=== PATIENT | male | born 1990 | race Caucasian/White ===

== ENCOUNTER 2018-10-23 02:56 | Inpatient (IN) | payer MEDICAID ==
[~2018-10-23] VITALS: Ht 180.3 cm; Wt 112.5 kg
--- NOTE | ~2018-10-23 | EKG ---
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
[2018-10-23 02:57] VITALS: BP 140/98
[2018-10-23 03:18] LABS: ABSOLUTE BASOPHILS 0.1 thou/uL (0.0-0.2); BASOPHILS 0.5 %; EOSINOPHILS 0.3 %; HEMATOCRIT 47.8 % (42.0-52.0); HEMOGLOBIN 15.9 gm/dL (14.0-18.0); LYMPHOCYTES 12.4 %; MCH 29.5 pg (26.0-34.0); MCHC 33.2 g/dL (28.0-37.0); MCV 88.9 fL (80.0-100.0); MONOCYTES 6.3 %; MPV 8.3 fl. (7.2-11.1); NUCLEATED RBCS 0 /100WBC; PLATELET COUNT* 302 thou/uL (150-400); POLYS 80.5 %; RBC 5.38 mil/uL (4.50-6.00); RDW-CV 12.9 % (10.5-14.5); WBC 16.2 thou/uL (4.0-11.0)
[2018-10-23] MEDS ORDERED: FLONASE 0.05%50 MCG NASAL (03:20)
[2018-10-23] MEDS ORDERED: FOLIC ACID1 MG PO (03:21)
[2018-10-23] MEDS ORDERED: IBUPROFEN 600600 M1 PO (03:22)
[2018-10-23] MEDS ORDERED: MUCINEX600 MG PO (03:22)
[2018-10-23] MEDS ORDERED: ZOFRAN ODT4 MG PO (03:23)
[2018-10-23] MEDS ORDERED: NIACIN ER500 MG PO (03:23)
[2018-10-23] MEDS ORDERED: PROTONIX 20 MG20 M1 PO (03:24)
[2018-10-23] MEDS ORDERED: PALIPERIDONE ER9 MG PO (03:24)
[2018-10-23] MEDS ORDERED: PRAVACHOL20 MG PO (03:25)
[2018-10-23] MEDS ORDERED: RANITIDINE 150150 M1 PO (03:26)
[2018-10-23] MEDS ORDERED: PROAIR RESPICL90 MCG INH (03:26)
[2018-10-23 03:27] LABS: APTT 26.1 Seconds (25.0-31.3); PROTIME 10.6 Seconds (9.20-11.50)
[2018-10-23 03:28] LABS: ANION GAP 9 mmol/L (7-16); BUN 10 mg/dL (7-18); CALCIUM 9.3 mg/dL (8.5-10.1); CHLORIDE 99 mmol/L (98-107); CO2 28 mmol/L (21-32); CREATININE 0.9 mg/dL (0.6-1.3); GLUCOSE 160 mg/dL (70-99); POTASSIUM 3.7 mmol/L (3.5-5.1); SODIUM 136 mmol/L (136-145)
[2018-10-23] MEDS ORDERED: TRIPLE ANTIBIO1 EACH (03:28)
[2018-10-23] MEDS ORDERED: VITAMIN D250000 UNIT PO (03:29)
[2018-10-23] MEDS ORDERED: MAPAP325 MG PO (03:30)
[2018-10-23] MEDS ORDERED: MIRALAX17 GM PO (03:30)
[2018-10-23] MEDS ORDERED: CLONIDINE0.1 PO (03:31)
[2018-10-23] MEDS ORDERED: DOXEPIN 25 MG C25 M1 PO (03:32)
[2018-10-23 03:47] LABS: ALBUMIN 3.8 g/dL (3.4-5.0); ALKALINE PHOSPHATASE 123 U/L (46-116); CK-MB MASS < 0.5 ng/mL (<0.5-3.6); LIPASE 106 U/L (73-393); MAGNESIUM 1.4 mg/dL (1.8-2.4); NT-PRO BRAIN NAT PEPTIDE 18 pg/mL (<300); SGOT 29 U/L (15-37); SGPT 63 U/L (30-65); TOTAL BILIRUBIN 0.4 mg/dL (<0.1-1.0); TOTAL PROTEIN 8.2 g/dL (6.4-8.2); TROPONIN-I LEVEL <0.06 ng/mL (<0.06)
[2018-10-23 05:30] VITALS: BP 163/100
[2018-10-23 09:02] VITALS: BP 146/93
[2018-10-23 11:51] VITALS: BP 160/80
--- NOTE | 2018-10-23 12:22 | EKG ---
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
[2018-10-23 14:21] LABS: HEMATOCRIT 43.9 % (42.0-52.0); HEMOGLOBIN 14.8 gm/dL (14.0-18.0); MCH 29.8 pg (26.0-34.0); MCHC 33.8 g/dL (28.0-37.0); MCV 88.3 fL (80.0-100.0); NUCLEATED RBCS 0 /100WBC; PLATELET COUNT* 286 thou/uL (150-400); RBC 4.98 mil/uL (4.50-6.00); WBC 16.3 thou/uL (4.0-11.0)
[2018-10-23 14:29] LABS: CALCIUM 9.1 mg/dL (8.5-10.1); CREATININE 0.9 mg/dL (0.6-1.3); POTASSIUM 3.8 mmol/L (3.5-5.1)
[2018-10-23 14:55] LABS: ABSOLUTE LYMPHOCYTES 0.8 thou/uL (0.8-5.3); ABSOLUTE MONOCYTES 0.2 thou/uL (0.0-1.2); ABSOLUTE NEUTROPHILS 15.3 thou/uL (1.6-8.1); ATYPICAL LYMPHS 1 %; PLATELET ESTIMATE ADEQUATE
[2018-10-23 20:30] VITALS: BP 132/72
[2018-10-24] VITALS: BP 156/89
[2018-10-24 04:00] VITALS: BP 152/95
[2018-10-24 08:15] VITALS: BP 165/108
[2018-10-24 09:44] LABS: CALCIUM 9.2 mg/dL (8.5-10.1); CREATININE 0.8 mg/dL (0.6-1.3); MAGNESIUM 1.5 mg/dL (1.8-2.4); POTASSIUM 3.8 mmol/L (3.5-5.1)
[2018-10-24 09:54] LABS: ABSOLUTE BASOPHILS 0.1 thou/uL (0.0-0.2); ABSOLUTE EOSINOPHILS 0.1 thou/uL (0.0-0.7); ABSOLUTE LYMPHOCYTES 1.4 thou/uL (0.8-5.3); ABSOLUTE MONOCYTES 1.4 thou/uL (0.0-1.2); ABSOLUTE NEUTROPHILS 10.1 thou/uL (1.6-8.1); BASOPHILS 0.6 %; EOSINOPHILS 0.8 %; HEMATOCRIT 45.7 % (42.0-52.0); HEMOGLOBIN 15.5 gm/dL (14.0-18.0); LYMPHOCYTES 10.8 %; MCH 29.9 pg (26.0-34.0); MCHC 33.8 g/dL (28.0-37.0); MCV 88.6 fL (80.0-100.0); MONOCYTES 10.9 %; MPV 8.3 fl. (7.2-11.1); NUCLEATED RBCS 0 /100WBC; PLATELET COUNT* 279 thou/uL (150-400); POLYS 76.9 %; RBC 5.16 mil/uL (4.50-6.00); RDW-CV 13.1 % (10.5-14.5); WBC 13.1 thou/uL (4.0-11.0)
[2018-10-24 11:59] VITALS: BP 151/79
[2018-10-24 16:46] VITALS: BP 138/98
[2018-10-24 20:30] VITALS: BP 140/82
[2018-10-25] VITALS: BP 118/73
[2018-10-25 04:00] VITALS: BP 133/76
[2018-10-25 08:15] VITALS: BP 120/85
[2018-10-25 12:52] VITALS: BP 123/75
[2018-10-25 20:20] VITALS: BP 113/75
[2018-10-26] VITALS: BP 114/58
[2018-10-26 04:00] VITALS: BP 119/81
[2018-10-26 09:22] VITALS: BP 126/69
[2018-10-26 12:00] VITALS: BP 111/70
[2018-10-26] MEDS ORDERED: KEFLEX500 M1 PO (14:08)
[2018-10-26] MEDS ORDERED: PALIPERIDONE ER9 MG PO (14:29)
[2018-10-26] MEDS ORDERED: CARVEDILOL3.125 MG PO (14:43)
[2018-10-26 14:44] VITALS: BP 111/70
== END 2018-10-26 16:17 | disposition home or self-care (01) | DRG 179 ==
LOC: M.ERS 02:56 → M.2W 05:01 → M.TBA-ER 05:01 → M.2W 05:14
PROVIDERS: Family Medicine; Nurse Practitioner; ADMIT Internal Medicine
DX: J69.0 Pneumonitis due to inhalation of food and vomit (principal); R62.50 Unspecified lack of expected normal physiological development in childhood; I10 Essential (primary) hypertension; J45.909 Unspecified asthma, uncomplicated; R74.0 Nonspecific elevation of levels of transaminase and lactic acid dehydrogenase [LDH]; Z79.51 Long term (current) use of inhaled steroids; Z79.899 Other long term (current) drug therapy